=== PATIENT | male | born 1965 | race Two or more races ===

== ENCOUNTER 2016-08-16 17:50 | Emergency (ER) | payer OTHER ==
[~2016-08-16] VITALS: Ht 175.3 cm; Wt 81.6 kg
[2016-08-16 17:55] VITALS: BP 126/81
== END 2016-08-16 19:04 | disposition home or self-care (01) ==
LOC: ER 17:51
DX: M54.6 Pain in thoracic spine (principal); V49.40XA Driver injured in collision with unspecified motor vehicles in traffic accident, initial encounter; Y93.89 Activity, other specified; Y92.413 State road as the place of occurrence of the external cause; Y99.8 Other external cause status
CPT/HCPCS: 72074; 99284; A4606; Z7610